=== PATIENT | male | born 1965 | race Caucasian/White ===

== ENCOUNTER 2024-06-19 12:36 | Outpatient (CLI) | payer MEDICAID ==
[~2024-06-19 12:36] MED LIST: iohexol 300mg/ml 100ml inj. ONE
--- NOTE | 2024-06-19 16:08 | RADIOLOGY REPORT ---
PROCEDURE: CT CTA CHEST ABDOMEN PELVIS W/ IV CONTRAST 06/19/2024 01:39 PM INDICATION: ADENOCARCINOMA OF RECTUM COMPARISON: None TECHNIQUE: Coverage: Chest, abdomen and pelvis IV contrast: Administered Phases: Arterial Multiplanar 3-D Maximum Intensity Projection images (MIP) reconstructions were created by the technganesh rodriguez in the coronal and sagittal planes as part of the CT angiography protocol. Adverse events: None Medication laboratory values were reviewed to verify the patient meets criteria for contrast administ ration. All CT scans at this medical facility are performed using dose modulation techniques as appropriate t o a performed exam including the following: Automated exposure control was utilized; adjustment of th e MA and/or KV according to patient size; and use of iterative reconstruction technique. Radiation dose: CTDIvol mGy, DLP mGy*cm. FINDINGS: Chest: The thyroid glands unremarkable. No evidence of aortic aneurysm or dissection. Mild dilatation of the pulmonary trunk up to 34 mm. Co rrelate for pulmonary arterial hypertension. Mild cardiomegaly. No significant mediastinal or hilar lymphadenopathy. No pneumothorax, pleural effusion or focal airspace consolidation. Bilateral dependent, and lingula, atelectasis. 4 mm right middle lobe pleural based nodule. Soft tissues are unremarkable. No destructive osseous lesions are noted. Abdomen and pelvis: Cholelithiasis without evidence for acute cholecystitis. Liver, pancreas and adrenal glands unremarka ble. Kidneys, ureters and urinary bladder unremarkable. Prostate is unremarkable. There is fluid within the esophagus. Mild proximal gastric wall thickening. Mild wall Thickening of p roximal small bowel loops. The remainder of the small bowel loops are normal. Appendix is unremarkabl e. Moderate amount of fecal material in the colon. There is rectal wall thickening. There is minimal perirectal edema. No evidence of intraperitoneal free air or free fluid. No evidence of aortic aneurysm. No significant lymphadenopathy. Tiny fat containing umbilical hernia. Fat containing right inguinal hernia. Motion artifact limits ev aluation of the pelvic bones , lumbar spine and femur for fracture. IMPRESSION: Rectal wall thickening with minimal adjacent fat stranding which may be due to the known adenocarcino ma with proctitis not excluded. Mild wall of the proximal stomach and proximal small-bowel loops which may be due to inadequate diste ntion/gastroenteritis. Cholelithiasis with no evidence of acute cholecystitis. Bilateral dependent, bibasilar, lingular and right middle lobe atelectasis. 4 mm right lateral middle lobe pleural-based nodule. Recommend follow-up per Fleischner criteria.
== END 2024-06-19 23:59 | disposition home or self-care (01) ==
LOC: RAD 12:36
PROVIDERS: ATTEND General Practice
DX: S72.91XA Unspecified fracture of right femur, initial encounter for closed fracture (principal); C20 Malignant neoplasm of rectum; I51.7 Cardiomegaly; I27.20 Pulmonary hypertension, unspecified; K80.20 Calculus of gallbladder without cholecystitis without obstruction; K42.9 Umbilical hernia without obstruction or gangrene; X58.XXXA Exposure to other specified factors, initial encounter; Y93.89 Activity, other specified; Y92.89 Other specified places as the place of occurrence of the external cause; Y99.8 Other external cause status; R91.1 Solitary pulmonary nodule; J98.11 Atelectasis
CPT/HCPCS: 71270; 74178; Q9967